=== PATIENT | female | born 1995 | race Caucasian/White ===

== ENCOUNTER 2016-03-30 13:40 | Emergency (ER) | payer BC, OTHER ==
[2016-03-30 13:52] VITALS: BP 148/85
--- NOTE | 2016-03-30 14:20 | UC ---
Abdominal Pain Female HPI - HPI Summary HPI Summary: 3 DAYS OF N/V/D, ST, BODY ACHES, COUGH AND CONGESTION. FEVER 101 YESTERDAY. - History of Current Complaint Chief Complaint: UCGeneralIllness Stated Complaint: NAUSEA DIARRHEA Time Seen by Provider: 03/30/16 14:00 Hx Obtained From: Patient Hx Last Menstrual Period: 03/21/16 Onset/Duration: Gradual Onset, Lasting Days, Still Present Timing: Constant Severity Initially: Moderate Severity Currently: Moderate Pain Intensity: 0 Pain Scale Used: 0-10 Numeric Location: Diffuse Radiates: No Character: Cramping Aggravating Factor(s): Food Alleviating Factor(s): Nothing Associated Signs and Symptoms: Positive: Fever, Cough, Decreased Appetite, Nausea, Vomiting, Diarrhea Allergies/Adverse Reactions: Allergies Allergy/AdvReac Type Severity Reaction Status Date / Time Erythromycin Allergy Severe Hives/Diff. Verified 03/30/16 13:52 Breathing/I tching PMH/Surg Hx/FS Hx/Imm Hx Endocrine History Of: Denies: Diabetes Cardiovascular History Of: Denies: Hypertension GI/ History Of: Denies: Renal Disease Psychological History Of: Reports: Anxiety, Bipolar Disorder - Surgical History Surgical History: Yes Surgery Procedure, Year, and Place: left [facility] 2011 - Family History Known Family History: Positive: Hypertension, Diabetes, Other - schizophrenia. PTSD. depression. cervical/prostate/lung cancer. - Social History Alcohol Use: Rare Substance Use Type: Marijuana Substance Use Comment - Amount & Last Used: rare Smoking Status (MU): Current Every Day Smoker Type: Cigarettes Amount Used/How Often: 10 cigs/day Review of Systems Constitutional: Fever, Chills ENT: Sore Throat, Nasal Discharge Respiratory: Cough Cardiovascular: Negative Gastrointestinal: Abdominal Pain, Vomiting, Diarrhea, Other - NAUSEA Musculoskeletal: Myalgia All Other Systems Reviewed And Are Negative: Yes Physical Exam Triage Information Reviewed: Yes Appearance: Well-Appearing, No Pain Distress, Well-Nourished Vital Signs: Initial Vital Signs Temp 98.4 F 03/30/16 13:48 Pulse 75 03/30/16 13:48 Resp 20 03/30/16 13:48 BP 148/85 03/30/16 13:48 Pulse Ox 96 03/30/16 13:48 Vital Signs Reviewed: Yes Eyes: Positive: Conjunctiva Clear ENT: Positive: Hearing grossly normal, Pharynx normal, TMs normal Neck: Positive: Supple, Nontender, No Lymphadenopathy Respiratory Exam: Normal Cardiovascular Exam: Normal Abdomen Description: Positive: Soft Musculoskeletal: Positive: No Edema Neurological: Positive: Alert Psychological: Positive: Age Appropriate Behavior Skin: Negative: rashes Abd Pain Female Course/Dx - Differential Dx/Diagnosis Provider Diagnoses: ACUTE VIRAL SYNDROME Discharge - Discharge Plan Condition: Stable Disposition: HOME Prescriptions: Ondansetron ODT TAB* [Zofran Odt TAB*] 4 mg PO Q6H PRN #20 tab.odt PRN Reason: Nausea/Vomiting Patient Education Materials: Viral Syndrome (ED) Forms: *Work Release Referrals: No Primary Care Phys,NOPCP [Primary Care Provider] - Additional Instructions: ENSURE ADEQUATE HYDRATION. CLEAR LIQUIDS, BLAND DIET. AVOID CAFFEINE, DAIRY, GREASY, SPICY FOODS. ONCE YOU ARE TOLERATING CLEAR LIQUIDS YOU CAN ADVANCE TO SIMPLE, BLAND FOODS. OTC ALEVE NEEDED FOR FEVER AND BODY ACHES. CALL THE NUMBER BELOW FOR ASSISTANCE IN ESTABLISHING WITH A PCP An additional resource available to assist in finding the appropriate physician for your health care needs is the [facility] ([facility]). You may contact them by calling [phone].
== END 2016-03-30 14:33 | disposition home or self-care (01) ==
LOC: UCEAST 13:40
DX: B34.9 Viral infection, unspecified (principal); Z88.1 Allergy status to other antibiotic agents; F17.210 Nicotine dependence, cigarettes, uncomplicated
CPT/HCPCS: 99212; G0463

== ENCOUNTER 2016-05-01 20:11 | Emergency (ER) | payer BC ==
[2016-05-01 21:20] LABS: Urine Bacteria Absent (Absent); Urine Bilirubin Negative (Negative); Urine Glucose Negative (Negative); Urine Nitrite Negative (Negative)
[2016-05-02 02:50] LABS: Hematocrit 36 % (35-47); Hemoglobin 12.3 g/dl (12.0-16.0); Mean Corpuscular HGB Conc 35 g/dl (31-36); Mean Corpuscular Hemoglobin 30 pg (27-31); Mean Corpuscular Volume 88 fL (80-97); Mean Platelet Volume 9 um3 (7.4-10.4); Red Blood Count 4.06 10^6/ul (4.0-5.4); Red Cell Distribution Width 13 % (10.5-15); White Blood Count 7.5 10^3/ul (3.5-10.8)
[2016-05-02 03:21] LABS: ALT 36 U/L (7-52); AST 25 U/L (13-39); Albumin 3.4 g/dL (3.2-5.2); Alkaline Phosphatase 60 U/L (34-104); Anion Gap 7 mmol/L (2-11); BUN/Creatinine Ratio 20.3 (8-20); Blood Urea Nitrogen 13 mg/dL (6-24); CO2 Carbon Dioxide 25 mmol/L (22-32); Calcium 8.6 mg/dL (8.6-10.3); Chloride 104 mmol/L (101-111); EGFR African American 149.2 (>60); Globulin 3.1 g/dL (2-4); Glucose 92 mg/dL (70-100); Lipase < 10 U/L (11.0-82.0); Potassium 3.9 mmol/L (3.5-5.0); Sodium 136 mmol/L (133-145); Total Protein 6.5 g/dL (6.4-8.9)
[2016-05-02] MEDS ORDERED: Iohexol 300* (CONTRAST) 10 ML SDV IV ONE (03:27)
[2016-05-02] MEDS ORDERED: Levofloxacin TAB* 500 MG PO ONE (04:43)
[2016-05-02 05:10] VITALS: BP 110/70
--- NOTE | 2016-05-02 05:12 | ED ---
Chyna Balbuena Rebecca, scribed for Ellis Cheneyuel on 05/02/16 at 0043 . Abdominal Pain/Female - HPI Summary HPI Summary: Pt is a 20 y/o F who presents to ED c/o abd pain. Pain began suddenly 2 days ago and has been constant since onset. Pain is discrete to the RLQ and LLQ without radiation, characterized as sharp and severe, ranked 8/10. Sx aggravated and alleviated by nothing. Additionally c/o nausea. Denies V/D, vaginal bleeding and hematuria. No PSHx on the abdomen. SHx current smoker. Denies possibility of . - History of Current Complaint Chief Complaint: EDAbdPain Stated Complaint: ABD PAIN Time Seen by Provider: 05/02/16 00:34 Hx Obtained From: Patient Hx Last Menstrual Period: 03/21/16 Onset/Duration: Sudden Onset, Lasting Days - 2 days, Still Present Timing: Constant Severity Initially: Moderate Severity Currently: Severe Pain Intensity: 8 Pain Scale Used: 0-10 Numeric Location: Discrete At: RLQ, Discrete At: LLQ Radiates: No Character: Sharp Aggravating Factor(s): Nothing Alleviating Factor(s): Nothing Associated Signs and Symptoms: Positive: Nausea. Negative: Urinary Symptoms - Denies hematuria, Vaginal Bleeding, Vomiting, Diarrhea Allergies/Adverse Reactions: Allergies Allergy/AdvReac Type Severity Reaction Status Date / Time Erythromycin Allergy Severe Hives/Diff. Verified 05/01/16 20:34 Breathing/I tching PMH/Surg Hx/FS Hx/Imm Hx Endocrine/Hematology History: Denies: Hx Diabetes Cardiovascular History: Denies: Hx Hypertension History: Denies: Hx Renal Disease Psychiatric History: Reports: Hx Anxiety, Hx Bipolar Disorder - Surgical History Surgery Procedure, Year, and Place: [place] [id number] Infectious Disease History: No Infectious Disease History: Denies: Traveled Outside the [place] in Last 30 Days - Family History Known Family History: Positive: Hypertension, Diabetes, Other - schizophrenia. PTSD. depression. cervical/prostate/lung cancer. - Social History Alcohol Use: Rare Hx Substance Use: No Substance Use Type: Reports: Marijuana Substance Use Comment - Amount & Last Used: rare Hx Tobacco Use: Yes Smoking Status (MU): Current Every Day Smoker Type: Cigarettes Amount Used/How Often: 10 cigs/day Review of Systems Positive: Abdominal Pain, Nausea. Negative: Vomiting, Diarrhea Positive: other - Denies vaginal bleeding. Negative: hematuria All Other Systems Reviewed And Are Negative: Yes Physical Exam Triage Information Reviewed: Yes Vital Signs On Initial Exam: Initial Vitals Temp Pulse Resp BP Pulse Ox 99.0 F 88 16 136/76 100 05/01/16 20:31 05/01/16 20:31 05/01/16 20:31 05/01/16 20:31 05/01/16 20:31 Vital Signs Reviewed: Yes Appearance: Positive: Well-Appearing, No Pain Distress Skin: Positive: Warm, Skin Color Reflects Adequate Perfusion, Dry Head/Face: Positive: Normal Head/Face Inspection Eyes: Positive: EOMI, PHILIPPE ENT: Positive: Normal ENT inspection Neck: Positive: Supple, Nontender Respiratory/Lung Sounds: Positive: Clear to Auscultation, Breath Sounds Present Cardiovascular: Positive: RRR, Pulses are Symmetrical in both Upper and Lower Extremities Abdomen Description: Positive: Soft. Negative: Nontender - RLQ and LLQ tenderness Bowel Sounds: Positive: Present Musculoskeletal: Positive: Normal, Strength/ROM Intact Neurological: Positive: Normal, Sensory/Motor Intact, Alert, Oriented to Person Place, Time Diagnostics - Vital Signs Vital Signs Temp Pulse Resp BP Pulse Ox 05/01/16 23:36 99.3 F 90 18 139/63 100 05/01/16 20:50 98.4 F 92 20 133/67 99 05/01/16 20:31 99.0 F 88 16 136/76 100 - Laboratory Lab Results: Lab Results 05/01/16 Range/Units 20:41 Urine Color Yellow Urine Appearance Cloudy Urine pH 5.0 (5-9) Ur Specific [place] 1.020 (1.010-1.030) Urine Protein Negative (Negative) Urine Ketones Negative (Negative) Urine Blood Negative (Negative) Urine Nitrate Negative (Negative) Urine Bilirubin Negative (Negative) Urine Urobilinogen Negative (Negative) Ur Leukocyte Esterase 1+ H (Negative) Urine WBC (Auto) 3+(>20/hpf) H (Absent) Urine RBC (Auto) 2+(6-10/hpf) H (Absent) Ur Squamous Epith Cells Present H (Absent) Ur Transition Epith Cell Present H (Absent) Urine Bacteria Absent (Absent) Urine Glucose Negative (Negative) Result Diagrams: 05/02/16 02:40 05/02/16 02:40 Lab Statement: Any lab studies that have been ordered have been reviewed, and results considered in the medical decision making process. - CT CT Abd/Pel CT Interpretation Completed By: Radiologist - Small slightly complex free lfuid cul-de-sac, probably physiologic. 1.4 cm corpus luteum left ovary. No bowel obstruction, colitis or free air. Probably very thing normal appendix. No pericecal inflammation. Unremarkable pancreas, kidneys and gallbladder. Splenomegaly. Duplicated right ureter. 3 mm subpleural nodule lower lobe, probably inflammatory. Abdominal Pain Fem Course/Dx - Course Course Of Treatment: Pt is a 20 y/o F who presents to ED c/o constant RLQ and LLQ abd pain for 2 days. Additionally c/o nausea. Denies V/D, vaginal bleeding and hematuria. CT Abd/Pel results above. Urine WBC 3+. Urine RBC 2+. Urine leukocyte esterase 1+ H. Pt will be D/C to home with a dx of UTI with an Rx for Abx and a follow up with her PCP. - Diagnoses Provider Diagnoses: UTI (urinary tract infection) Discharge - Discharge Plan Condition: Stable Disposition: HOME Prescriptions: Levofloxacin TAB* [Levaquin TAB*] 500 mg PO DAILY #4 tab Patient Education Materials: Urinary Tract Infection in Women (ED) Referrals: [facility] [place] [facility] [Outside] - 3 Days (Follow up with your primary care physician in the next 3 days. ) The documentation as recorded by the Chyna herrera Rebecca accurately reflects the service I personally performed and the decisions made by , Charan Cheney.
--- NOTE | 2016-05-02 08:20 | RAD ---
CLINICAL HISTORY: Fever, cramps, abdominal pain COMPARISON: January 30, 2016 TECHNIQUE: Multiple contiguous axial CT scans were obtained of the abdomen and pelvis after the administration of intravenous contrast. Coronal and sagittal multiplanar reformations are submitted for review. Oral contrast was administered. Delayed images were obtained through the abdomen FINDINGS: LUNG BASES: There are multiple small parenchymal nodules of the lower lobes bilaterally measuring up to 0.3 cm. Comparison to prior imaging is limited secondary to atelectatic changes of the lung bases on the previous examination LIVER: The liver is homogeneously enlarged measuring 21 cm in long axis. BILE DUCTS: There is no intrahepatic or extrahepatic biliary dilatation. GALLBLADDER: The gallbladder is normal, without pericholecystic inflammatory change. PANCREAS: The pancreas is normal, without mass or ductal dilatation. SPLEEN: The spleen is mildly enlarged measuring up to 13 cm. UPPER GI TRACT: Evaluation of the gastrointestinal tract is limited by incomplete gastric distention. The upper GI tract is unremarkable. SMALL BOWEL AND MESENTERY: The small bowel is normal in contour, course, and caliber. There is no obstruction or dilatation. COLON: The colon is normal in contour, course, caliber. There is no pericolonic inflammatory change. There is a tubular, vermiform, hollow viscus that is blind ending, and originates from the cecum, consistent with a normal appendix. There is no periappendiceal inflammatory change. ADRENALS: Normal bilaterally. KIDNEYS: The kidneys are normal in shape, size, contour, and axis. There is no hydronephrosis or nephrolithiasis. BLADDER: The bladder is smooth in contour. PELVIC ORGANS: The uterus and adnexa are grossly normal for technique. There is a small amount of free fluid within the pelvic cul-de-sac. AORTA: The aorta is normal. IVC: Unremarkable LYMPH NODES: There is no lymphadenopathy by size criteria. ABDOMINAL WALL: There is no evidence for abdominal wall hernia. BONES AND SOFT TISSUES: Unremarkable OTHER: None IMPRESSION: 1. NORMAL APPENDIX. 2. HEPATOSPLENOMEGALY. 3. MULTIPLE SMALL NODULES OF THE LOWER LUNGS BILATERALLY MEASURING UP TO 3 CM. THE RECOMMENDATIONS FOR FOLLOWUP AND MANAGEMENT OF AN INCIDENTALLY DETECTED PULMONARY NODULE LESS THAN OR EQUAL TO 4 MM IN SIZE, IN A PATIENT WITHOUT A HISTORY OF MALIGNANCY, INCLUDE NO FOLLOWUP FOR A LOW-RISK PATIENT OR FOLLOWUP CT IN 12 MONTHS FOR A HIGH RISK PATIENT. 4. SMALL AMOUNT OF FLUID WITHIN THE PELVIC CUL-DE-SAC. THIS MAY BE PHYSIOLOGIC WITHIN A REPRODUCTIVE AGE FEMALE. NOTES: SIZE = AVERAGE LENGTH AND WIDTH; HIGH RISK IS DEFINED A HISTORY OF SMOKING OR OTHER KNOW RISK FACTORS FOR LUNG CANCER; LOW RISK IS DEFINED MINIMAL OR ABSENT HISTORY OF SMOKING OR OTHER KNOWN RISK FACTORS. NODULES WITH A GROUND GLASS COMPONENT MAY REQUIRE LONGER FOLLOW UP TO EXCLUDE INDOLENT ADENOCARCINOMA.
--- NOTE | 2016-05-04 06:56 | PN ---
Progress Note - Progress Note Note: Patient urine culture grew Staphylococcus saprophyticus >100,000. Was placed on levaquin at d/c so no further action is needed.
== END 2016-05-02 05:08 | disposition home or self-care (01) ==
LOC: ED 20:11
DX: N39.0 Urinary tract infection, site not specified (principal); R10.30 Lower abdominal pain, unspecified; F17.210 Nicotine dependence, cigarettes, uncomplicated; R11.0 Nausea
CPT/HCPCS: 36415; 74177; 80053; 81003; 81015; 83690; 84702; 85025; 85610; 85730; 87077; 87086; 99282; Q9967

== ENCOUNTER 2017-07-12 14:54 | Emergency (ER) | payer SELFPAY ==
[2017-07-12 15:45] VITALS: BP 133/81
--- NOTE | 2017-07-12 16:07 | UC ---
Knee Pain HPI - HPI Summary HPI Summary: 21 y/o female presents to the urgent care c/o RT knee pain for the past 3 weeks. Pt reports she started a new job and she has been doing a lot of bending and heavy lifting and her knee pain has worsen for the past 5 days. Pt states pain is 5/10 at rest and 8/10 w/ bending, she feels like a grinding sound and and a pinching sharp pain on the patella and medial side of the knee. Pt has taken on and off Advil to alleviate symptoms. Pt denies numbness or tingling sensation over her knee of RT leg, calf pain, SOB, chest pain, recent injury, abdominal pain, N/V/D. LMP:06/23/2017 w/ regular menstrual cycles and not sexually active lately. - History of Current Complaint Chief Complaint: UCLowerExtremity Stated Complaint: KNEE PAIN Time Seen by Provider: 07/12/17 15:48 Hx Obtained From: Patient Hx Last Menstrual Period: 06/23/17 ?: No - Pt not sexually active lately Onset/Duration: Gradual Onset, Lasting Weeks - 3 weeks, Still Present, Worse Since - 5 days Severity Initially: Mild Severity Currently: Moderate Pain Intensity: 8 - w/ bending Pain Scale Used: 0-10 Numeric Character: Sharp, Dull Aggravating Factor(s): Movement, Stairs Alleviating Factor(s): Rest, OTC Meds Associated Signs And Symptoms: Positive: Negative. Negative: Swelling, Redness , Bruising, Fever, Weakness, Numbness, Tingling Able to Bear Weight: Yes - Risk Factors Septic Arthritis Risk Factor: Negative Gout Risk Factor: Negative - Allergies/Home Medications Allergies/Adverse Reactions: Allergies Allergy/AdvReac Type Severity Reaction Status Date / Time camphor [From Vicks Vaporub] Allergy Difficulty Verified 07/12/17 15:46 Breathing erythromycin base Allergy Hives/Diff. Verified 07/12/17 15:46 Breathing/I tching eucalyptus Allergy Difficulty Verified 07/12/17 15:46 [From Vicks Vaporub] Breathing menthol [From Vicks Vaporub] Allergy Difficulty Verified 07/12/17 15:46 Breathing petrolatum,white Allergy Difficulty Verified 07/12/17 15:46 [From Vicks Vaporub] Breathing turpentine oil Allergy Difficulty Verified 07/12/17 15:46 [From Vicks Vaporub] Breathing PMH/Surg Hx/FS Hx/Imm Hx Previously Healthy: Yes Psychological History: Anxiety, Depression, Bipolar Disorder - Surgical History Surgical History: Yes Surgery Procedure, Year, and Place: left foot sugery 2011 - Family History Known Family History: Positive: Hypertension, Diabetes, Other - schizophrenia. PTSD. depression. cervical/prostate/lung cancer. - Social History Occupation: Employed Full-time Lives: With Family Alcohol Use: Rare Substance Use Type: None Substance Use Comment - Amount & Last Used: rare Smoking Status (MU): Light Every Day Tobacco Smoker Type: Cigarettes Amount Used/How Often: 10 cigs/day Review of Systems Constitutional: Negative Skin: Negative Eyes: Negative ENT: Negative Respiratory: Negative Cardiovascular: Negative Gastrointestinal: Negative Genitourinary: Negative Motor: Negative Neurovascular: Negative Musculoskeletal: Decreased ROM - RT knee, Other: - RT knee pain Neurological: Negative Psychological: Negative Is Patient Immunocompromised?: No All Other Systems Reviewed And Are Negative: Yes Physical Exam - Summary Physical Exam Summary: Vital Signs Reviewed: Yes General: well developed, well nourished obese female sitting in the examining table w/o any apparent distress Eyes: Positive: Conjunctiva Clear - PERRLA, EOMI, fundi grossly normal ENT: Positive: Normal ENT inspection, Hearing grossly normal, Pharynx normal, TMs normal Neck: Positive: Supple, Nontender, No Lymphadenopathy Respiratory: Positive: Chest nontender, Lungs clear, Normal breath sounds, No respiratory distress Cardiovascular: Positive: RRR, No Murmur, Pulses Normal, Brisk Capillary Refill Abdomen Description: Positive: Nontender, No Organomegaly, Soft. Negative: CVA Tenderness (R), CVA Tenderness (L) Bowel Sounds: Positive: Present Musculoskeletal: Positive: Strength Intact, No Edema, RT Knee: Pt is able to bear weight and ambulate with limping. No surface trauma, soft tissue swelling, or obvious effusion. No overlying erythema or warmth. The RT knee is without obvious asymmetry or deformity when compared with the R knee. Both knees are equeal n size 20 cm. Decreased ROM of LF knee due to pain. Point tenderness to palpation of the patella, no effusion or ballottement. Point tenderness over the infrapatellar tendon. Point tenderness over the medial joint line, No tenderness over the lateral tibial plateaus. No tenderness over the proximal fibular head, No tenderness, fullness or mass of the popliteal fossa. No quadriceps tenderness. No laxity of the ACL. PCL, MCL, or LCL. no collateral ligament laxity to valgus or varus stress. Negative Brigid/Drawer sign. Negative Keyur. Distal motor and neurovascular status intact. Neurological Exam: Normal Psychological Exam: Normal Skin Exam: Normal Triage Information Reviewed: Yes Vital Signs: Initial Vital Signs Temp 98.2 F 07/12/17 15:40 Pulse 92 07/12/17 15:40 Resp 18 07/12/17 15:40 BP 133/81 07/12/17 15:40 Pulse Ox 100 07/12/17 15:40 Knee Pain Course/Dx - Course Course Of Treatment: 21 y/o female presents to the urgent care c/o RT knee pain for the past 3 weeks. Pt reports she started a new job and she has been doing a lot of bending and heavy lifting and her knee pain has worsen for the past 5 days. Pt states pain is 5/10 at rest and 8/10 w/ bending, she feels like a grinding sound and and a pinching sharp pain on the patella and medial side of the knee. Pt has taken on and off Advil to alleviate symptoms. Pt denies numbness or tingling sensation over her knee of RT leg, calf pain, SOB, chest pain, recent injury, abdominal pain, N/V/D. LMP:06/23/2017 w/ regular menstrual cycles and not sexually active lately. Hx obtained. RT knee X-ray ordered. Impression:No acute osseous injury. Probably Pt has Patellofemoral syndrome. Pt' s knee immobilized w/ emmanuel bandage and Advised RICE. Avoid strenuous exercise or standing for long period of time. Recommended if not improvement of symptoms to f/u with Orthopedic Dr Candelaria or your PCP in 1 week for further evaluation and treatment. Physical Therapy referral also given for fruther management. PT understood and agreed with D/C instructions. Pt left the clinic ambulating , A& OX[facility]. - Differential Dx/Diagnosis Differential Diagnosis/HQI/PQRI: Fracture (Closed), [place]-Schlatter Disease, Patellofemoral Syndrome, Sprain, Strain, Tendonitis Provider Diagnoses: 1- Acute Rt knee pain. 2- Patellofemoral syndrome Discharge - Sign-Out/Discharge Documenting (check all that apply): Discharge/Admit/Transfer - D/C home - Discharge Plan Condition: Stable Disposition: HOME Prescriptions: Naproxen TAB* [Naprosyn 250 mg TAB*] 250 mg PO Q8H PRN #30 tab PRN Reason: Pain Patient Education Materials: Patellofemoral Pain Syndrome (ED) Forms: *Work Release Referrals: [facility] [facility] [Outside] - 1 Week Philomena Candelaria MD [Medical Doctor] - 1 Week Additional Instructions: 1-Please take medications as directed to alleviate pain and swelling. 2-Please apply ice, keep your knee immobilized with the Emmanuel bandage 3- Please f/u with Orthopedic DR Candelaria or your PCP in 1 week is not improvement of symptoms for further evaluation and treatment. 4- F/u Physical therapy referral for further evaluation and treatment - Billing Disposition and Condition Condition: STABLE Disposition: HOME
[2017-07-12] MEDS ORDERED: Ibuprofen TAB* 400 MG PO ONE (16:20)
--- NOTE | 2017-07-12 16:53 | RAD ---
INDICATION: Right knee pain. TECHNIQUE: 4 views of the right knee were obtained. FINDINGS: The bones are in normal alignment. No joint effusion or fracture is seen. Joint spaces appear maintained. IMPRESSION: NO EVIDENCE FOR FRACTURE.
== END 2017-07-12 17:18 | disposition home or self-care (01) ==
LOC: UCEAST 14:54
DX: M25.561 Pain in right knee (principal); M22.2X1 Patellofemoral disorders, right knee; F41.9 Anxiety disorder, unspecified; F31.9 Bipolar disorder, unspecified; Z88.1 Allergy status to other antibiotic agents; F17.210 Nicotine dependence, cigarettes, uncomplicated
CPT/HCPCS: 99212; A9270-GY; G0463

== ENCOUNTER 2018-07-01 09:53 | Emergency (ER) | payer SELFPAY ==
[2018-07-01 10:06] VITALS: BP 135/80
--- NOTE | 2018-07-01 10:48 | ED ---
Throat Pain/Nasal Congestion - HPI Summary HPI Summary: 22-year-old who presents with sinus congestion for the past 3 days. She states that has bilateral ear pain. She states she's been having green nasal discharge. She admits to occasional cough. No shortness of breath or chest pain. Is an occasional smoker. Has no medical conditions. Denies abdominal pain. No sore throat. - History of Current Complaint Chief Complaint: UCRespiratory Time Seen by Provider: 07/01/18 10:41 - Allergies/Home Medications Allergies/Adverse Reactions: Allergies Allergy/AdvReac Type Severity Reaction Status Date / Time camphor [From Vicks Vaporub] Allergy Difficulty Verified 07/01/18 10:07 Breathing erythromycin base Allergy Hives/Diff. Verified 07/01/18 10:07 Breathing/I tching eucalyptus Allergy Difficulty Verified 07/01/18 10:07 [From Vicks Vaporub] Breathing menthol [From Vicks Vaporub] Allergy Difficulty Verified 07/01/18 10:07 Breathing petrolatum,white Allergy Difficulty Verified 07/01/18 10:07 [From Vicks Vaporub] Breathing turpentine oil Allergy Difficulty Verified 07/01/18 10:07 [From Vicks Vaporub] Breathing PMH/Surg Hx/FS Hx/Imm Hx Endocrine/Hematology History: Denies: Hx Diabetes Cardiovascular History: Denies: Hx Hypertension History: Denies: Hx Dialysis, Hx Renal Disease Psychiatric History: Reports: Hx Anxiety, Hx Bipolar Disorder - Surgical History Surgery Procedure, Year, and Place: [facility] 2011 Infectious Disease History: No Infectious Disease History: Denies: Traveled Outside the [place] in Last 30 Days - Family History Known Family History: Positive: Hypertension, Diabetes, Other - schizophrenia. PTSD. depression. cervical/prostate/lung cancer. - Social History Alcohol Use: Rare Hx Substance Use: No Substance Use Type: Reports: None Substance Use Comment - Amount & Last Used: rare Hx Tobacco Use: Yes Smoking Status (MU): Light Every Day Tobacco Smoker Type: Cigarettes Amount Used/How Often: 10 cigs/day Review of Systems Negative: Fever Positive: Ear Ache, Nasal Discharge Negative: Chest Pain Positive: Cough. Negative: Shortness Of Breath Negative: Abdominal Pain All Other Systems Reviewed And Are Negative: Yes Physical Exam Triage Information Reviewed: Yes Vital Signs On Initial Exam: Initial Vitals Temp Pulse Resp BP Pulse Ox 98.4 F 85 17 135/80 99 07/01/18 10:04 07/01/18 10:04 07/01/18 10:04 07/01/18 10:04 07/01/18 10:04 Vital Signs Reviewed: Yes Appearance: Positive: Well-Appearing Skin: Positive: Warm, Dry Head/Face: Positive: Normal Head/Face Inspection Eyes: Positive: Normal, EOMI, PHILIPPE, Conjunctiva Clear ENT: Positive: Pharynx normal, Nasal congestion, Nasal drainage, TM bulging - left, TM red - left Neck: Positive: Supple, Nontender, No Lymphadenopathy Respiratory/Lung Sounds: Positive: Clear to Auscultation, Breath Sounds Present Cardiovascular: Positive: Normal, RRR Abdomen Description: Positive: Nontender, Soft Bowel Sounds: Positive: Present Musculoskeletal: Positive: Normal Neurological: Positive: Normal Psychiatric: Positive: Normal Diagnostics - Vital Signs Vital Signs Temp Pulse Resp BP Pulse Ox 07/01/18 10:04 98.4 F 85 17 135/80 99 - Laboratory Lab Statement: Any lab studies that have been ordered have been reviewed, and results considered in the medical decision making process. EENT Course/Dx - Course Course Of Treatment: 22-year-old who presents with sinus congestion for the past 3 days. She states that has bilateral ear pain. She states she's been having green nasal discharge. She admits to occasional cough. No shortness of breath or chest pain. Is an occasional smoker. Has no medical conditions. Denies abdominal pain. No sore throat. On exam has nasal congestion present. Left TM red and bulging. will treat ear infection with Augmentin. Told to use nasal saline and Sudafed for nasal congestion. Told can add on over-the- counter Flonase. Patient understands agrees with plan. - Differential Diagnoses Differential Diagnoses: Otitis Media, Sinusitis, URI/Bronchitis - Diagnoses Provider Diagnoses: Otitis media, Upper respiratory infection Discharge - Sign-Out/Discharge Documenting (check all that apply): Patient Departure All imaging exams completed and their final reports reviewed: No Studies - Discharge Plan Condition: Good Disposition: HOME Prescriptions: Amoxicillin/Clavulanate TAB* [Augmentin TAB 875*] 875 mg PO BID #20 tab Patient Education Materials: Ear Infection (ED) Referrals: [facility] [Outside] Additional Instructions: Take antibiotic twice a day for 10 days Take Tylenol or ibuprofen for pain every 6 hours Use saline spray in nose as much as needed can use sudafed daily establish care with primary Return to ED if develop any new or worsening symptoms - Billing Disposition and Condition Condition: GOOD Disposition: Home
== END 2018-07-01 10:57 | disposition home or self-care (01) ==
LOC: UCEAST 09:53
DX: H66.93 Otitis media, unspecified, bilateral (principal); J06.9 Acute upper respiratory infection, unspecified; F41.9 Anxiety disorder, unspecified; F31.9 Bipolar disorder, unspecified; Z88.1 Allergy status to other antibiotic agents; Z88.8 Allergy status to other drugs, medicaments and biological substances; F17.210 Nicotine dependence, cigarettes, uncomplicated
CPT/HCPCS: 99212; G0463